=== PATIENT | female | born 1970 | race Caucasian/White ===

== ENCOUNTER 2016-12-22 20:00 | Emergency (ER) | payer OTHER ==
[2016-12-22 20:28] VITALS: BP 142/111
[2016-12-22] MEDS ORDERED: Penicillin VK TAB* 250 MG PO ONE ×2 (20:53)
--- NOTE | 2016-12-28 22:02 | UC ---
Sheldon Maurice Benjamin, scribed for Haja Richards MD on 12/22/16 at 2042 . Dental HPI - HPI Summary HPI Summary: 46yo female presents with a recurring dental abscess on her right upper tooth. Pt was supposed to have a root canal done but has been postponing her treatment. Now pt presents with pain. No fever/chills. - History of Current Complaint Chief Complaint: UCDentalProblem Stated Complaint: ABCESS MOUTH Time Seen by Provider: 12/22/16 20:31 Hx Obtained From: Patient Hx Last Menstrual Period: "I DON'T REMEMBER" ?: No Onset/Duration: Sudden Onset, Lasting Hours, Still Present Severity: Moderate Aggravating: Nothing Alleviating: Nothing Related History: Previous Dental Care on Same Tooth, Swelling - Allergies/Home Medications Allergies/Adverse Reactions: Allergies Allergy/AdvReac Type Severity Reaction Status Date / Time No Known Allergies Allergy Verified 12/22/16 20:28 PMH/Surg Hx/FS Hx/Imm Hx Previously Healthy: No Endocrine History: Diabetes - Surgical History Surgical History: None - Family History Known Family History: Positive: Diabetes - Social History Occupation: Employed Full-time Lives: With Family Alcohol Use: Occasionally Substance Use Type: None Smoking Status (MU): Current Some Day Smoker Review of Systems Constitutional: Negative Skin: Negative Eyes: Negative ENT: Dental Pain - right upper Respiratory: Negative Cardiovascular: Negative Gastrointestinal: Negative Genitourinary: Negative Motor: Negative Neurovascular: Negative Musculoskeletal: Negative Neurological: Negative Psychological: Negative All Other Systems Reviewed And Are Negative: Yes Physical Exam Triage Information Reviewed: Yes Appearance: Well-Appearing, No Pain Distress, Well-Nourished Vital Signs: Initial Vital Signs Temp 98.8 F 12/22/16 20:25 Pulse 82 12/22/16 20:25 Resp 20 12/22/16 20:25 BP 142/111 12/22/16 20:25 Pulse Ox 98 12/22/16 20:25 Vital Signs Reviewed: Yes Eyes: Positive: Conjunctiva Clear ENT: Positive: Normal ENT inspection Dental: Positive: Other: - Right upper gingival swelling above the molar. Neck: Positive: Supple, Nontender Respiratory: Positive: Chest non-tender, Lungs clear, Normal breath sounds Cardiovascular: Positive: RRR, No Murmur Musculoskeletal: Positive: Strength Intact, ROM Intact Neurological: Positive: Alert, Muscle Tone Normal Psychological: Positive: Age Appropriate Behavior Skin: Negative: rashes Dental Complaint Course/Dx - Differential Dx/Diagnosis Provider Diagnoses: TOOTHACHE, DENTAL INFECTION Discharge - Discharge Plan Condition: Stable Disposition: HOME Prescriptions: Penicillin VK 500 MG TAB(NF) [Penicillin VK 500 mg Tab] 500 mg PO QID #40 tab Patient Education Materials: Dental Abscess (ED) Referrals: No Primary Care Phys,NOPCP [Primary Care Provider] - Additional Instructions: FOLLOW UP WITH YOUR DENTIST. GET SEEN AGAIN FOR ANY WORSENING OF YOUR CONDITION OR QUESTIONS OR CONCERNS. The documentation as recorded by the Sheldon chandra Benjamin accurately reflects the service I personally performed and the decisions made by me, Haja Richards MD.
== END 2016-12-22 21:05 | disposition home or self-care (01) ==
LOC: UCEAST 20:00
DX: K04.7 Periapical abscess without sinus (principal); Z72.0 Tobacco use
CPT/HCPCS: 99212; A9270-GY; G0463

== ENCOUNTER 2017-02-25 17:16 | Emergency (ER) | payer OTHER ==
--- NOTE | 2017-02-25 17:28 | UC ---
UC Dental HPI - History of Current Complaint Stated Complaint: DENTAL COMPLAINT Time Seen by Provider: 02/25/17 17:26 Hx Last Menstrual Period: "I DON'T REMEMBER" - Allergies/Home Medications Allergies/Adverse Reactions: Allergies Allergy/AdvReac Type Severity Reaction Status Date / Time No Known Allergies Allergy Verified 12/22/16 20:28 PMH/Surg Hx/FS Hx/Imm Hx - Surgical History Surgical History: None - Family History Known Family History: Positive: None, Diabetes - Social History Alcohol Use: Occasionally Substance Use Type: None Smoking Status (MU): Current Some Day Smoker Discharge - Discharge Plan Condition: Stable Disposition: HOME
[2017-02-25 17:32] VITALS: BP 157/99
--- NOTE | 2017-02-25 17:34 | UC ---
UC Dental HPI - HPI Summary HPI Summary: 46 YEAR OLD FEMALE PRESENTS WITH COMPLAINS RIGHT UPPER MOLAR PAIN/ABSCESS. - History of Current Complaint Chief Complaint: UCDentalProblem Stated Complaint: DENTAL COMPLAINT Time Seen by Provider: 02/25/17 17:26 Hx Obtained From: Patient Hx Last Menstrual Period: 3 MONTHS Onset/Duration: Sudden Onset Severity: Moderate Pain Scale Used: 0-10 Numeric - 6 - Allergies/Home Medications Allergies/Adverse Reactions: Allergies Allergy/AdvReac Type Severity Reaction Status Date / Time No Known Allergies Allergy Verified 02/25/17 17:33 PMH/Surg Hx/FS Hx/Imm Hx Previously Healthy: Yes - Surgical History Surgical History: None - Family History Known Family History: Positive: None, Diabetes - Social History Alcohol Use: Occasionally Substance Use Type: None Smoking Status (MU): Light Every Day Tobacco Smoker Review of Systems Constitutional: Negative Skin: Negative Eyes: Negative ENT: Dental Pain Respiratory: Negative Cardiovascular: Negative Gastrointestinal: Negative Genitourinary: Negative Motor: Negative Neurovascular: Negative Musculoskeletal: Negative Neurological: Negative Psychological: Negative All Other Systems Reviewed And Are Negative: Yes Physical Exam Triage Information Reviewed: Yes Vital Signs: Initial Vital Signs Temp 36.5 C 02/25/17 17:25 Pulse 91 02/25/17 17:25 Resp 16 02/25/17 17:25 BP 157/99 02/25/17 17:25 Pulse Ox 99 02/25/17 17:25 Vital Signs Reviewed: Yes Eye Exam: Normal ENT Exam: Normal Dental: Positive: Abscess @ Neck exam: Normal Neck: Positive: 1 Respiratory Exam: Normal Cardiovascular Exam: Normal Abdominal Exam: Normal Musculoskeletal Exam: Normal Neurological Exam: Normal Psychological Exam: Normal Skin Exam: Normal Dental Complaint Course/Dx - Differential Dx/Diagnosis Provider Diagnoses: RIGHT UPPER MOLAR ABSCESS Discharge - Discharge Plan Condition: Stable Disposition: HOME Prescriptions: Chlorhexidine MW 0.12% 473ML* [Peridex Mouth Wash 0.12%*] 15 ml MT TID PC #1 btl Naproxen TAB* [Naprosyn 250 mg TAB*] 500 mg PO Q8H PRN #30 tab PRN Reason: Pain Penicillin VK TAB* [Penicillin VK 250 mg Tab*] 250 mg PO QID #40 tab Patient Education Materials: Dental Abscess (ED), Toothache (ED) Referrals: Dallin Lawson MD [Medical Doctor] -
== END 2017-02-25 17:50 | disposition home or self-care (01) ==
LOC: UCEAST 17:16
DX: K04.7 Periapical abscess without sinus (principal); F17.210 Nicotine dependence, cigarettes, uncomplicated
CPT/HCPCS: 99212; G0463